=== PATIENT | female | born 1950 | race Caucasian/White ===

== ENCOUNTER → 2019-07-08 | Outpatient (CLI) | payer MEDICARE | END | disposition home or self-care (01) | LOC: RAH 11:57 | PROVIDERS: ATTEND Internal Medicine | DX: K76.89 Other specified diseases of liver (principal); I70.0 Atherosclerosis of aorta; R11.2 Nausea with vomiting, unspecified; Z90.710 Acquired absence of both cervix and uterus | CPT/HCPCS: 74176 ==

== ENCOUNTER → 2019-08-27 | Outpatient (CLI) | payer MEDICARE | END | disposition home or self-care (01) | LOC: LAB 13:00 | PROVIDERS: ATTEND Internal Medicine | DX: L65.9 Nonscarring hair loss, unspecified (principal) | CPT/HCPCS: 36415; 84443 ==